=== PATIENT | male | born 1930 | race Caucasian/White ===

== ENCOUNTER 2016-10-14 17:52 | Observation (INO) | payer MEDICARE, OTHER ==
[~2016-10-14] VITALS: Ht 172.7 cm; Wt 63.0 kg
[~2016-10-14 17:52] MED LIST: ATOR20TA42 PO; BACI500T TOP; BISA10R PR; DILA50CH CHEW; FLEEENE3 PR; HYDR10TA23 PO; JANU100T PO; KLOR20 PO; LEVO50TA4 PO; MAGN1SOL2 PO; MAGN400 PO; MILKSUS5 PO; NYSTT TOPICAL; OMEP20TA PO; PROP20TA3 PO; TAMS5CAP PO; WARF-20 PO; ZYTI250T PO
[2016-10-14 18:28] VITALS: BP 131/72; PULSE 73; RESP 12; TEMP 98.2; O2SAT 94
[2016-10-14 20:09] VITALS: BP 152/72; PULSE 72; RESP 16; TEMP 97.1; O2SAT 96
[2016-10-14] MEDS ORDERED: APIX2.5T PO (21:14)
[2016-10-14] MEDS ORDERED: BISC10SU RECTAL (21:14)
[2016-10-14] MEDS ORDERED: SITA1TAB2 PO (21:14)
[2016-10-14] MEDS ORDERED: POTA-163 PO (21:14)
[2016-10-14] MEDS ORDERED: MAGN1TAB14 PO (21:14)
[2016-10-14] MEDS ORDERED: DILA100C PO (21:14)
[2016-10-14] MEDS ORDERED: PROP20TA3 PO (21:14)
[2016-10-14] MEDS ORDERED: [UNRECOGNIZED DRUG - OTHER] PO (21:14)
[2016-10-14] MEDS ORDERED: LIPI20TA PO (21:14)
[2016-10-14] MEDS ORDERED: OMEP20TA PO (21:14)
[2016-10-14] MEDS ORDERED: LEVO50TA4 PO (21:14)
[2016-10-14] MEDS ORDERED: FLEEENE3 RECTAL (21:14)
[2016-10-14] MEDS ORDERED: MILK2400 PO (21:14)
[2016-10-14] MEDS ORDERED: HYDR10TA23 PO (21:14)
[2016-10-14] MEDS ORDERED: MAGNSOL2 PO (21:14)
[2016-10-14] MEDS ORDERED: TAMS5CAP PO (21:14)
--- NOTE | 2016-10-14 21:30 | PD ---
HPI Chief Complaint: Neuro Symptoms/ Deficits Time Seen by Provider: 21:00 Travel History International Travel<30 days: No Contact w/Intl Traveler<30days: No Traveled to known affect area: No History of Present Illness HPI 86-year-old male was brought in by family for local [facility] for PEG tube placement. Patient has history of CVA with low extremity weakness. Patient started having problem with swallowing and started having aspiration problem recently. Patient fell swallow evaluation test yesterday. Patient was advised by personal physician to take patient to the ED to be admitted for PEG tube placement. Patient has history of seizure and unable to take Dilantin by mouth. Patient has history of hypertension, encephalopathy, GI bleed, dyslipidemia, aphasia, hypothyroidism, type 2 diabetes, medication, GERD, chronic kidney disease. PFSH Past Medical History Hx Anticoagulant Therapy: Yes Arthritis: Yes Asthma: No Blood Disorders: No Depression: No Cancer: Yes (PROSTATE CA, LEFT EAR) Cardiovascular Problems: Yes High Cholesterol: Yes Chemotherapy: No Chest Pain: Yes (CARDIAC ARREST DECEMBER 2014, [place] AT AGE 52) Congestive Heart Failure: No COPD: No Cerebrovascular Accident: Yes (CVA 30+YRS. AGO, BRAIN BLEED S/P FALL 2015) Diabetes: Yes Patient Takes Glucophage: No Endocrine: No Gastrointestinal Disorders: No GERD: No Genitourinary: Yes (PROSTATE CA) Headaches: No Hiatal Hernia: No Heparin Induced Thrombocytopen: No Hypertension: Yes Immune Disorder: No Implanted Vascular Access Dvce: No Kidney Stones: No Musculoskeletal: Yes Neurologic: Yes (BRAIN BLEED, CVA, seizures) Psychiatric: No Reproductive: No Respiratory: No Migraines: No Myocardial Infarction: Yes Radiation Therapy: Yes (Seeds placed for prostate ca) Renal Failure: No Seizures: Yes Sickle Cell Disease: No Sleep Apnea: No Thyroid Disease: No Ulcer: No Past Surgical History Abdominal Surgery: No AICD: No Arteriovenous Shunt: No Cardiac Surgery: No Ear Surgery: No Endocrine Surgery: No Eye Surgery: No Genitourinary Surgery: Yes (PROSTATE BX) Gynecologic Surgery: No Insulin Pump: No Joint Replacement: No Neurologic Surgery: No Oral Surgery: Yes Pacemaker: No Thoracic Surgery: No Other Surgery: No (IVC FILTER 2014) Social History Alcohol Use: No Tobacco Use: No Substance Use: No Allergies-Medications (Allergen,Severity, Reaction): Coded Allergies: Sulfa (Verified Allergy, Mild, 10/14/16) *MDRO Multi-Drug Resistant Organism (Verified Adverse Reaction, Unknown, ) 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 Reported Meds & Prescriptions Reported Meds & Active Scripts Active Reported Fleet Enema Rectal (Sodium Phosphates Rectal) 7-19 Gm/118 Ml Enem 118 Ml RECTAL DAILY PRN Milk of Magnesia Concentrate Liq (Magnesium Hydroxide) 1,200 Mg/5 Ml Susp 30 Ml PO DAILY PRN Magnesium Citrate Liq (Magnesium Citrate) 300 Ml Liq 300 Ml PO DIRECTED Biscolax Supp (Bisacodyl) 10 Mg Supp 10 Mg RECTAL DAILY PRN [Readycare] 240 Ml PO QID Potassium Chloride ER (Potassium Chloride) 20 Meq Tab 20 Meq PO TID Dilantin (Phenytoin Extended) 100 Mg Cap 100 Mg PO TID Propranolol (Propranolol HCl) 20 Mg Tab 20 Mg PO Q12HR Hydralazine (Hydralazine HCl) 10 Mg Tab 10 Mg PO BID Take with a meal Eliquis (Apixaban) 2.5 Mg Tab 2.5 Mg PO BID Omeprazole 20 Mg Tab 20 Mg PO DAILY Magnesium 400 Mg Tab 400 Mg PO DAILY Lipitor (Atorvastatin Calcium) 20 Mg Tab 20 Mg PO HS Levothyroxine (Levothyroxine Sodium) 50 Mcg Tab 50 Mcg PO DAILY Januvia (Sitagliptin Phosphate) 100 Mg Tab 100 Mg PO DAILY Flomax (Tamsulosin HCl) 0.4 Mg Cap 0.4 Mg PO HS Review of Systems General / Constitutional: No: Fever Eyes: No: Visual changes HENT: No: Headaches Cardiovascular: No: Chest Pain or Discomfort Respiratory: No: Shortness of Breath Gastrointestinal: No: Abdominal Pain Genitourinary: No: Dysuria Musculoskeletal: No: Pain Skin: No Rash Neurologic: No: Weakness Psychiatric: No: Depression Endocrine: No: Polydipsia Hematologic/Lymphatic: No: Easy Bruising Physical Exam Narrative GENERAL: Well-nourished, well-developed patient. SKIN: Warm and dry. HEAD: Normocephalic. EYES: No scleral icterus. No injection or drainage. NECK: Supple, trachea midline. No JVD or lymphadenopathy. CARDIOVASCULAR: Regular rate and rhythm without murmurs, gallops, or rubs. RESPIRATORY: Breath sounds equal bilaterally. No accessory muscle use. GASTROINTESTINAL: Abdomen soft, non-tender, nondistended. MUSCULOSKELETAL: No cyanosis, or edema. BACK: Nontender without obvious deformity. No CVA tenderness. Neurologic exam: Patient's noncommunicable. Patient's awake and alert follow commands. Unable to move lower extremity. Data Data Last Documented VS Vital Signs Date Time Temp Pulse Resp B/P Pulse Ox O2 Delivery O2 Flow Rate FiO2 10/14/16 21:48 94 Room Air 10/14/16 20:09 97.1 72 16 152/72 Orders Electrocardiogram (10/14/16 ) Complete Blood Count With Diff (10/14/16 21:15) Basic Metabolic Panel (Bmp) (10/14/16 21:15) Prothrombin Time / Inr (Pt) (10/14/16 21:15) Act Partial Throm Time (Ptt) (10/14/16 21:15) Urinalysis - C+S If Indicated (10/14/16 21:15) Chest, Single Ap (10/14/16 21:15) Iv Access Insert/Monitor (10/14/16 21:15) Ecg Monitoring (10/14/16 21:15) Oximetry (10/14/16 21:15) Phenytoin (Dilantin) (10/14/16 21:15) Urine Culture (10/14/16 21:40) Piperacil-Tazo 3.375 Gm Premix (Zosyn 3. (10/14/16 23:00) Vancomycin Inj (Vancomycin Inj) (10/14/16 23:00) Phenytoin Inj (Dilantin Inj) (10/14/16 23:00) Labs Laboratory Tests Test 10/14/16 10/14/16 10/14/16 21:34 21:40 21:54 White Blood Count 7.3 TH/MM3 Red Blood Count 4.18 MIL/MM3 Hemoglobin 12.7 GM/DL Hematocrit 37.1 % Mean Corpuscular Volume 88.7 FL Mean Corpuscular Hemoglobin 30.5 PG Mean Corpuscular Hemoglobin 34.3 % Concent Red Cell Distribution Width 13.9 % Platelet Count 221 TH/MM3 Mean Platelet Volume 7.8 FL Neutrophils (%) (Auto) 79.3 % Lymphocytes (%) (Auto) 10.4 % Monocytes (%) (Auto) 8.7 % Eosinophils (%) (Auto) 1.4 % Basophils (%) (Auto) 0.2 % Neutrophils # (Auto) 5.8 TH/MM3 Lymphocytes # (Auto) 0.8 TH/MM3 Monocytes # (Auto) 0.6 TH/MM3 Eosinophils # (Auto) 0.1 TH/MM3 Basophils # (Auto) 0.0 TH/MM3 CBC Comment DIFF FINAL Differential Comment Sodium Level 138 MEQ/L Potassium Level 4.2 MEQ/L Chloride Level 104 MEQ/L Carbon Dioxide Level 24.8 MEQ/L Anion Gap 9 MEQ/L Blood Urea Nitrogen 19 MG/DL Creatinine 1.07 MG/DL Estimat Glomerular Filtration 66 ML/MIN Rate Random Glucose 122 MG/DL Calcium Level 9.2 MG/DL Phenytoin (Dilantin) Level 2.9 MCG/ML Urine Color YELLOW Urine Turbidity HAZY Urine pH 5.5 Urine Specific [place] 1.011 Urine Protein NEG mg/dL Urine Glucose (UA) NEG mg/dL Urine Ketones NEG mg/dL Urine Occult Blood NEG Urine Nitrite POS Urine Bilirubin NEG Urine Urobilinogen LESS THAN 2.0 MG/DL Urine Leukocyte Esterase LARGE Urine RBC LESS THAN 1 /hpf Urine WBC 10 /hpf Urine Bacteria FEW /hpf Microscopic Urinalysis Comment CULTURE INDICATED Prothrombin Time 10.9 SEC Prothromb Time International 1.0 RATIO Ratio Activated Partial 25.7 SEC Thromboplast Time MDM Medical Decision Making Medical Screen Exam Complete: Yes Emergency Medical Condition: Yes Interpretation(s) 22:47 PM. Last Impressions Chest X-Ray 10/14/162114 Signed Impressions: Service Date/Time: Friday, October 14, 2016 21:28 - CONCLUSION: Bilateral peripheral airspace disease. Infectious infiltrate suspected. Agustin Cary Jr., MD 2248 PM. CBC WBC 7.3. Hemoglobin 12.7. Hematocrit 37.1. 79 neutrophil. BMP within normal limit. BUN 19. Phenytoin 2.9. UA positive for WBC and bacteria. Differential Diagnosis Differential diagnosis including esophageal obstruction, esophageal dysmotility , dehydration, electrolyte imbalance. Narrative Course 86-year-old male was brought in the ED for inability to swallow, frequent aspiration and failed swallow evaluation. Status post CVA. Normal saline solution 100 cc an hour. Zosyn 3.37 g IV. Vancomycin 1 g IV. Dilantin 100 mg IV given. Diagnosis Primary Impression: Pneumonia Qualified Code: J18.9 - Pneumonia of both lower lobes due to infectious organism Additional Impressions: Problems with swallowing UTI (urinary tract infection) Qualified Code: N30.00 - Acute cystitis without hematuria Admitting Information Admitting Physician Requests: Admit Luke Hart MD Oct 14, 2016 21:30
[2016-10-14 21:48] VITALS: O2SAT 94
--- NOTE | 2016-10-14 21:50 | RADRPT ---
EXAM DATE/TIME: 10/14/2016 21:28 [facility] COMPARISON: CHEST SINGLE AP, April 02, 2016, 14:28. INDICATIONS : Short of breath. MEDICAL HISTORY : Stroke. Swallow test done yesterday. SURGICAL HISTORY : None. ENCOUNTER: Initial ACUITY: 2 days PAIN SCORE: Non-responsive. LOCATION: Bilateral chest FINDINGS: Single portable frontal view of the chest shows patchy airspace consolidation involving the periphera l aspects of both lower lobes. No effusions. The heart is normal in size. Aorta is ectatic and calcif ied. Bony structures are unremarkable. CONCLUSION: Bilateral peripheral airspace disease. Infectious infiltrate suspected. Agustin Cary Jr., MD on October 14, 2016 at 21:46 Board Certified Radiologist. This report was verified electronically.
[2016-10-14 22:10] LABS: AUTOMATED NEUTROPHIL # 5.8 TH/MM3 (1.8-7.7); BASOPHIL % 0.2 % (0.0-2.0); EOSINOPHIL # 0.1 TH/MM3 (0-0.4); EOSINOPHIL % 1.4 % (0.0-4.0); HEMATOCRIT 37.1 % (39.0-51.0); HEMO FLAGS DIFF FINAL; LYMPH % 10.4 % (9.0-44.0); LYMPHOCYTE # 0.8 TH/MM3 (1.0-4.8); MEAN CELL VOLUME 88.7 FL (80.0-100.0); MEAN CORPUSCULAR HEMOGLOBIN 30.5 PG (27.0-34.0); MEAN CORPUSCULAR HGB CONC 34.3 % (32.0-36.0); MONO % 8.7 % (0.0-8.0); NEUT % 79.3 % (16.0-70.0); PLATELET COUNT 221 TH/MM3 (150-450); RED BLOOD COUNT 4.18 MIL/MM3 (4.50-5.90); RED CELL DISTRIBUTION WIDTH 13.9 % (11.6-17.2); WHITE BLOOD COUNT 7.3 TH/MM3 (4.0-11.0)
[2016-10-14 22:16] LABS: BACTERIA, URINE FEW /hpf; BLOOD, URINE NEG (NEG); COMMENT (UR) CULTURE INDICATED; CULTURE IF INDICATED CULTURE INDICATED; GLUCOSE,URINE NEG (NEG); KETONE, URINE NEG (NEG); NITRITE,URINE POS (NEG); PH, URINE 5.5 (5.0-8.5); URINE COLOR YELLOW (YELLW/STRAW)
[2016-10-14 22:32] LABS: BICARBONATE 24.8 MEQ/L (21.0-32.0); POTASSIUM 4.2 MEQ/L (3.5-5.1)
[2016-10-14 22:45] LABS: APTT (PATIENT) 25.7 SEC (24.3-30.1); PROTHROMBIN TIME - PATIENT 10.9 SEC (9.8-11.6)
[2016-10-14] MEDS ORDERED: PHENYTOIN INJ 100 MG/2 ML VIAL IV ONE (23:00)
[2016-10-14] MEDS ORDERED: PIPERACIL-TAZO 3.375 GM PREMIX 50 ML IV ONE (23:00)
[2016-10-14] MEDS ORDERED: VANCOMYCIN INJ 1,000 MG in SODIUM CHLOR 0.9% 250 ML INJ 250 ML IV ONE (23:00)
[2016-10-14] MEDS ORDERED: FOSPHENYTOIN INJ 1,000 MGPE in SODIUM CHLORIDE 0.9% INJ 50 ML IV ONE (23:45)
[2016-10-14] MEDS ORDERED: SODIUM CHLORIDE 0.9% FLUSH 5 ML FLUSH FLUSH PRN (23:45)
[2016-10-14] MEDS ORDERED: VANCOMYCIN 1,000 MG/NS 250 ML IV SCH ×2 (23:45)
[2016-10-14] MEDS ORDERED: DEXTROSE 50% IN WATER 50 ML VIAL(D50) IV PUSH PRN (23:45)
[2016-10-14] MEDS ORDERED: GLUCAGON 1 MG/ML VIAL OTHER PRN (23:45)
[2016-10-14] MEDS ORDERED: NALOXONE HCL 0.4 MG/ML AMP IV PRN (23:45)
--- NOTE | 2016-10-15 01:10 | HHI.HP ---
[facility] Deandre Parada MD Admission Diagnosis pneumonia. UTI. Unable to swallow. Subtherapeutic medication leve Diagnoses: Chief Complaint: unable to give history Travel History International Travel<30 Days: No Contact w/Intl Traveler <30 Da: No Traveled to Known Affected Are: No History of Present Illness history from ER physician communication, [facility] transfer notes, and review of medical records. Patient himself is elderly gentleman with significant aphasia secondary to previous CVAs. He pretty much answers no to everything line of questioning. He is not able to make a conversation. Cannot make a sentence. As per [facility] transfer notes, patient was sent by doctors there for PEG tube placement. Patient was at the nursing facility after having falls and previous CVAs. He was on pured and thin liquids diet over there. He then had Speech and Swallow Evaluation on October 13, 2016 at which he essentially failed. He was therefore put on nothing by mouth status. He was sent to ER for PEG tube placement likely because patient also has been missing his medications. He is on Dilantin at the nursing facility for history of seizures. In the emergency room, patient's Level Was Subtherapeutic. In the Emergency Room, Further Workup Revealed Bilateral Infiltrates on His Chest X-Ray. Review of Systems ROS Limitations: Speech Impaired (unable to obtain review of system at all. Patient kept saying no to pretty much everything.), Poor Historian Past Family Social History Past Medical History Per EMR and [facility] paperwork: CT- age 52 Pulmonary embolus 2015 Cardiac Arrest 2015 History of CVAstarted at age 52- with residual aphagia Hyperlipidemia Hypertension Diabetes Chronic kidney disease Hypothyroidism History of seizures History of encephalopathy History of C. difficile colitisin April 2016 History of GI bleed. 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 At present, patient is elderly gentleman residing at a nursing facility. Mostly wheelchair bound. Physical Exam Vital Signs Vital Signs Date Time Temp Pulse Resp B/P Pulse Ox O2 Delivery O2 Flow Rate FiO2 10/14/16 21:48 94 Room Air 10/14/16 20:09 97.1 72 16 152/72 96 10/14/16 18:28 98.2 73 12 131/72 94 Room Air Physical Exam GENERAL: This is an elderly gentleman, in no apparent distress. SKIN: No rashes, ecchymoses or lesions. Cool and dry. HEAD: Atraumatic. Normocephalic. No temporal or scalp tenderness. EYES: No scleral icterus. No injection or drainage. ENT: Nose without bleeding, purulent drainage or septal hematoma. Airway patent. NECK: Trachea midline. No JVD Supple, nontender, no meningeal signs. CARDIOVASCULAR: Regular rate and rhythm without murmurs, gallops, or rubs. RESPIRATORY: Clear to auscultation. Breath sounds equal bilaterally. No wheezes , rales, or rhonchi. GASTROINTESTINAL: Abdomen soft, non-tender, nondistended. No guarding. MUSCULOSKELETAL: Extremities without clubbing, cyanosis, or edema. No calf tenderness. NEUROLOGICAL: Awake, slurred speech. Not able to make a sentence. Only answer yes or no. However unsure how alert he is in terms of date and time. Does not really seem to understand the line of questioning. Bilateral lower extremity atrophy. Power about 3 out of 5 bilaterally. Upper extremity about 4 out of 5. Limited exam as patient is not able to follow commands. Laboratory Laboratory Tests Test 10/14/16 10/14/16 10/14/16 21:34 21:40 21:54 White Blood Count 7.3 Red Blood Count 4.18 Hemoglobin 12.7 Hematocrit 37.1 Mean Corpuscular Volume 88.7 Mean Corpuscular Hemoglobin 30.5 Mean Corpuscular Hemoglobin 34.3 Concent Red Cell Distribution Width 13.9 Platelet Count 221 Mean Platelet Volume 7.8 Neutrophils (%) (Auto) 79.3 Lymphocytes (%) (Auto) 10.4 Monocytes (%) (Auto) 8.7 Eosinophils (%) (Auto) 1.4 Basophils (%) (Auto) 0.2 Neutrophils # (Auto) 5.8 Lymphocytes # (Auto) 0.8 Monocytes # (Auto) 0.6 Eosinophils # (Auto) 0.1 Basophils # (Auto) 0.0 CBC Comment DIFF FINAL Differential Comment Sodium Level 138 Potassium Level 4.2 Chloride Level 104 Carbon Dioxide Level 24.8 Anion Gap 9 Blood Urea Nitrogen 19 Creatinine 1.07 Estimat Glomerular Filtration 66 Rate Random Glucose 122 Calcium Level 9.2 Phenytoin (Dilantin) Level 2.9 Urine Color YELLOW Urine Turbidity HAZY Urine pH 5.5 Urine Specific [place] 1.011 Urine Protein NEG Urine Glucose (UA) NEG Urine Ketones NEG Urine Occult Blood NEG Urine Nitrite POS Urine Bilirubin NEG Urine Urobilinogen LESS THAN 2.0 Urine Leukocyte Esterase LARGE Urine RBC LESS THAN 1 Urine WBC 10 Urine Bacteria FEW Microscopic Urinalysis Comment CULTURE INDICATED Prothrombin Time 10.9 Prothromb Time International 1.0 Ratio Activated Partial 25.7 Thromboplast Time Date/Time Procedure Status Source Growth 10/14/16 21:40 Urine Culture Received Urine Clean Catch Pending Result Diagram: 10/14/16213310/14/162133 Imaging Last 48 hours Impressions Chest X-Ray 10/14/162114 Signed Impressions: Service Date/Time: Friday, October 14, 2016 21:28 - CONCLUSION: Bilateral peripheral airspace disease. Infectious infiltrate suspected. Agustin Cary Jr., MD Assessment and Plan Problem List: (1) Problems with swallowing ICD Code: R13.10 Status: Acute (2) UTI (urinary tract infection) ICD Code: N39.0 Status: Acute (3) Pneumonia ICD Code: J18.9 Status: Acute Assessment and Plan Impression: Dysphagia post CVA Aspiration pneumonia UTI Subtherapeutic Dilantin level Chronic anticoagulationon Eliquis Plan: Give patient fosphenytoin at thousand milligrams one dose now. Started on Dilantin 100 mg IV every 8 hours. Seizure precautions. GI consult for PEG tube placement. Nothing by mouth. IV hydration with D5 normal saline at 42 cc per hour. We'll monitor fingersticks closely. No sliding scale coverage. Patient was given Zosyn and gentamicin IV in ER for aspiration pneumonia/UTI. At present, patient does not look toxic. Will continue Zosyn 4.5 g IV every 6 hours. Hold by mouth meds. DVT prophylaxisto restart Eliquis once patient has PEG tube GI prophylaxiswith pantoprazole. Discussed Condition With patient, ER physician, ER nurse Problem Qualifiers (1) UTI (urinary tract infection): Qualified Code: N30.00 - Acute cystitis without hematuria (2) Pneumonia: Qualified Code: J18.9 - Pneumonia of both lower lobes due to infectious organism Abdirahman Whitt MD Oct 15, 2016 01:10
[2016-10-15] MEDS ORDERED: hydrALAZINE HCL 20 MG/ML VIAL IV PUSH PRN (01:30)
[2016-10-15 03:16] VITALS: BP 152/65; PULSE 72; RESP 18; O2SAT 97
[2016-10-15] MEDS: DEXT 5%-NACL 0.9% 1000 ML INJ 1,000 ML IV SCH ×2 (03:30→23:34)
[2016-10-15 04:08] LABS: AUTOMATED NEUTROPHIL # 4.8 TH/MM3 (1.8-7.7); BASOPHIL % 0.3 % (0.0-2.0); EOSINOPHIL # 0.1 TH/MM3 (0-0.4); EOSINOPHIL % 1.7 % (0.0-4.0); HEMATOCRIT 34.4 % (39.0-51.0); HEMO FLAGS DIFF FINAL; LYMPHOCYTE # 0.8 TH/MM3 (1.0-4.8); MEAN CELL VOLUME 90.2 FL (80.0-100.0); MEAN CORPUSCULAR HEMOGLOBIN 30.2 PG (27.0-34.0); MEAN CORPUSCULAR HGB CONC 33.5 % (32.0-36.0); MONO % 11.3 % (0.0-8.0); NEUT % 73.7 % (16.0-70.0); PLATELET COUNT 198 TH/MM3 (150-450); RED BLOOD COUNT 3.81 MIL/MM3 (4.50-5.90); RED CELL DISTRIBUTION WIDTH 13.9 % (11.6-17.2); WHITE BLOOD COUNT 6.5 TH/MM3 (4.0-11.0)
[2016-10-15 04:39] LABS: BICARBONATE 26.5 MEQ/L (21.0-32.0); POTASSIUM 3.8 MEQ/L (3.5-5.1)
[2016-10-15] MEDS: PIPERACIL-TAZO 4.5 GM PREMIX 100 ML IV SCH ×4 (05:57→23:43)
[2016-10-15] MEDS: LEVOTHYROXINE SODIUM 100 MCG VIAL IV PUSH SCH (06:09)
[2016-10-15] MEDS: PHENYTOIN INJ 100 MG/2 ML VIAL IV SCH ×3 (06:09→23:43)
[2016-10-15 07:00] VITALS: BP 146/69; PULSE 65; RESP 19; TEMP 97.6; O2SAT 95
[2016-10-15] MEDS: SODIUM CHLORIDE 0.9% FLUSH 5 ML FLUSH FLUSH SCH ×2 (09:00→23:43)
[2016-10-15] MEDS: PANTOPRAZOLE SODIUM 40 MG VIAL IV PUSH SCH (09:09)
--- NOTE | 2016-10-15 09:33 | EKG ---
Date Performed: 10/14/2016 Time Performed: 21:20:33 PTAGE: 86 years EKG: Sinus rhythm Possible ANTERIOR MYOCARDIAL INFARCTION Possible INFERIOR MYOCARDIAL INFARCTION ABNORMAL ECG NO PREVIOUS TRACING DOCTOR: Daniel Randle Interpretating Date/Time 10/15/2016 09:31:18
[2016-10-15 11:00] VITALS: BP 132/74; PULSE 77; RESP 19; O2SAT 96
--- NOTE | 2016-10-15 12:36 | PD.CONS ---
HPI History of Present Illness This is a 86 year old with a history of a prior CVA who was sent from a local nursing facility to have a feeding tube placed. The patient has garbled speech since his stroke and is not able to communicate. The history has been obtained from the EMR and from the patient's son who is at the bedside. His son reports that he has been on a puree diet for quite some time, but recently had a modified barium swallow with speech therapy as outpatient and it showed that he was having silent aspiration. It was recommended that he remain nothing by mouth with bypass feedings. He was sent from [facility] to have a feeding tube placed. His son denies any nausea, vomiting, or obvious abdominal pain. We have evaluated the patient in the past for anemia and hematochezia. 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 Of note he takes Eliquis at the shelter and last had this on 10/14/16 at 9 AM according to the records from the shelter. ([facility]) PFSH Past Medical History CAD/PR Esophagitis Proctitis Pulmonary embolus 2015 Cardiac Arrest 2014 History of CVA with residual aphagia Hyperlipidemia Hypertension Diabetes Chronic kidney disease Hypothyroidism History of seizures History of encephalopathy History of C. difficile colitisin April 2016 History of GI bleed. 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 Medications Allergies Coded Allergies Type Severity Reaction Last Updated Verified Sulfa Allergy Mild 10/14/16 Yes *MDRO Multi-Drug Resistant Organism Adverse Reaction Unknown 10/14/16 Yes Active Scripts Medications Dose Route/Sig Days Date Category Dose Instructions Fleet Enema Rectal (Sodium Phosphates Rectal) 7-19 Gm/118 Ml Enem 118 Ml RECTAL DAILY PRN 10/14/16 Reported Milk of Magnesia Concentrate Liq (Magnesium Hydroxide) 1,200 Mg/5 Ml Susp 30 Ml PO DAILY PRN 10/14/16 Reported Magnesium Citrate Liq (Magnesium Citrate) 300 Ml Liq 300 Ml PO DIRECTED 10/14/16 Reported Biscolax Supp (Bisacodyl) 10 Mg Supp 10 Mg RECTAL DAILY PRN 10/14/16 Reported [[employer]] 240 Ml PO QID 10/14/16 Reported Potassium Chloride ER (Potassium Chloride) 20 Meq Tab 20 Meq PO TID 10/14/16 Reported Dilantin (Phenytoin Extended) 100 Mg Cap 100 Mg PO TID 10/14/16 Reported Propranolol (Propranolol HCl) 20 Mg Tab 20 Mg PO Q12HR 10/14/16 Reported Hydralazine (Hydralazine HCl) 10 Mg Tab 10 Mg PO BID 10/14/16 Reported Take with a meal Eliquis (Apixaban) 2.5 Mg Tab 2.5 Mg PO BID 10/14/16 Reported Omeprazole 20 Mg Tab 20 Mg PO DAILY 10/14/16 Reported Magnesium 400 Mg Tab 400 Mg PO DAILY 10/14/16 Reported Lipitor (Atorvastatin Calcium) 20 Mg Tab 20 Mg PO HS 10/14/16 Reported Levothyroxine (Levothyroxine Sodium) 50 Mcg Tab 50 Mcg PO DAILY 10/14/16 Reported Januvia (Sitagliptin Phosphate) 100 Mg Tab 100 Mg PO DAILY 10/14/16 Reported Flomax (Tamsulosin HCl) 0.4 Mg Cap 0.4 Mg PO HS 10/14/16 Reported Family History No family history of cancer. Social History Quit smoking at age 52. No EtOH. Resides at [facility] ([facility]) Review of Systems ROS Unable to obtain ([facility]) GI Exam Vitals I&O Vital Signs Date Time Temp Pulse Resp B/P Pulse Ox O2 Delivery O2 Flow Rate FiO2 10/15/16 11:00 77 19 132/74 96 Room Air 10/15/16 07:00 97.6 65 19 146/69 95 Room Air 10/15/16 03:16 72 18 152/65 97 10/14/16 21:48 94 Room Air 10/14/16 20:09 97.1 72 16 152/72 96 10/14/16 18:28 98.2 73 12 131/72 94 Room Air Imaging Last Impressions Chest X-Ray 10/14/162114 Signed Impressions: Service Date/Time: Friday, October 14, 2016 21:28 - CONCLUSION: Bilateral peripheral airspace disease. Infectious infiltrate suspected. Agustin Cary Jr., MD Laboratory Test 10/14/16 10/14/16 10/14/16 10/15/16 21:34 21:40 21:54 03:35 White Blood Count 7.3 TH/MM3 6.5 TH/MM3 Red Blood Count 4.18 MIL/MM3 3.81 MIL/MM3 Hemoglobin 12.7 GM/DL 11.5 GM/DL Hematocrit 37.1 % 34.4 % Mean Corpuscular Volume 88.7 FL 90.2 FL Mean Corpuscular Hemoglobin 30.5 PG 30.2 PG Mean Corpuscular Hemoglobin 34.3 % 33.5 % Concent Red Cell Distribution Width 13.9 % 13.9 % Platelet Count 221 TH/MM3 198 TH/MM3 Mean Platelet Volume 7.8 FL 7.9 FL Neutrophils (%) (Auto) 79.3 % 73.7 % Lymphocytes (%) (Auto) 10.4 % 13.0 % Monocytes (%) (Auto) 8.7 % 11.3 % Eosinophils (%) (Auto) 1.4 % 1.7 % Basophils (%) (Auto) 0.2 % 0.3 % Neutrophils # (Auto) 5.8 TH/MM3 4.8 TH/MM3 Lymphocytes # (Auto) 0.8 TH/MM3 0.8 TH/MM3 Monocytes # (Auto) 0.6 TH/MM3 0.7 TH/MM3 Eosinophils # (Auto) 0.1 TH/MM3 0.1 TH/MM3 Basophils # (Auto) 0.0 TH/MM3 0.0 TH/MM3 CBC Comment DIFF FINAL DIFF FINAL Differential Comment Sodium Level 138 MEQ/L 140 MEQ/L Potassium Level 4.2 MEQ/L 3.8 MEQ/L Chloride Level 104 MEQ/L 105 MEQ/L Carbon Dioxide Level 24.8 MEQ/L 26.5 MEQ/L Anion Gap 9 MEQ/L 9 MEQ/L Blood Urea Nitrogen 19 MG/DL 17 MG/DL Creatinine 1.07 MG/DL 1.00 MG/DL Estimat Glomerular Filtration 66 ML/MIN 71 ML/MIN Rate Random Glucose 122 MG/DL 121 MG/DL Calcium Level 9.2 MG/DL 9.0 MG/DL Phenytoin (Dilantin) Level 2.9 MCG/ML Urine Color YELLOW Urine Turbidity HAZY Urine pH 5.5 Urine Specific [place] 1.011 Urine Protein NEG mg/dL Urine Glucose (UA) NEG mg/dL Urine Ketones NEG mg/dL Urine Occult Blood NEG Urine Nitrite POS Urine Bilirubin NEG Urine Urobilinogen LESS THAN 2.0 MG/DL Urine Leukocyte Esterase LARGE Urine RBC LESS THAN 1 /hpf Urine WBC 10 /hpf Urine Bacteria FEW /hpf Microscopic Urinalysis Comment CULTURE INDICATED Prothrombin Time 10.9 SEC Prothromb Time International 1.0 RATIO Ratio Activated Partial 25.7 SEC Thromboplast Time Date/Time Procedure Status Source Growth 10/14/16 21:40 Urine Culture Received Urine Clean Catch Pending Physical Examination HEENT: Normocephalic; atraumatic; no jaundice. CHEST: Resp. even/unlabored, diminished CARDIAC: RR ABDOMEN: Soft, nondistended, nontender; no hepatosplenomegaly; bowel sounds are present in all four quadrants. EXTREMITIES: No clubbing, cyanosis, or edema. TOBACCO ROLLER: Alert, speech garbled. Does not follow commands ([facility]) Assessment and Plan Plan ASSESSMENT: - Dysphagia. Pt has a hx of CVA and has been on puree diet, but according to son was recently found to have silent aspiration on a modified barium swallow and was sent to the ER for placement of a feeding tube. Last Eliquis dose 10/14 at 0900. D/W EGD with peg tube placement, procedure, risks, benefits with son and he would like to proceed. - Anemia. 11.5/34.4. 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 - CVA, Hx PE. On Eliquis at shelter, last had 10/14 at 0900 - HTN, Hyperlipidemia, DM, CKD, Hypothyroidism. 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 According to oncology during evaluation, pt with very poor PFS and this was a palliative resection and reexcision of margins in this elderly, very frail patient not feasible. XRT poses problems in this patient with poor PFS PLAN: - Plan for egd with peg tube in am - Obtain consents - NPO - Hold Eliquis - On zoysn - CBC, BMP in am - Supportive care - Further recommendations to follow based on results of above - Pt seen and examined by Dr. Mane and myself and this note is written on her behalf ([facility]) Physician Comments seen, examined agree with above (France Mane MD) [facility] Oct 15, 2016 12:36 France Mane MD Oct 15, 2016 18:59
[2016-10-15 14:30] VITALS: BP 125/61; PULSE 58; RESP 19; O2SAT 96
[2016-10-15 16:00] VITALS: BP 138/65
[2016-10-15 20:00] VITALS: BP 138/69; PULSE 65; RESP 20; TEMP 97.1; O2SAT 95
[2016-10-16] VITALS (11 sets, daily range): BP systolic 126–156; BP diastolic 64–76; PULSE 68–79; RESP 18–20; TEMP 95.4–97.7; O2SAT 93–98
[2016-10-16] MEDS: PHENYTOIN INJ 100 MG/2 ML VIAL IV SCH ×3 (06:50→22:34)
[2016-10-16] MEDS: PIPERACIL-TAZO 4.5 GM PREMIX 100 ML IV SCH ×4 (06:50→22:34)
[2016-10-16] MEDS: LEVOTHYROXINE SODIUM 100 MCG VIAL IV PUSH SCH (06:52)
[2016-10-16] MEDS: SODIUM CHLORIDE 0.9% FLUSH 5 ML FLUSH FLUSH SCH ×2 (08:16→22:34)
[2016-10-16 08:26] LABS: AUTOMATED NEUTROPHIL # 4.3 TH/MM3 (1.8-7.7); BASOPHIL % 0.4 % (0.0-2.0); EOSINOPHIL # 0.1 TH/MM3 (0-0.4); EOSINOPHIL % 2.2 % (0.0-4.0); HEMATOCRIT 35.1 % (39.0-51.0); HEMO FLAGS DIFF FINAL; LYMPH % 10.9 % (9.0-44.0); LYMPHOCYTE # 0.6 TH/MM3 (1.0-4.8); MEAN CELL VOLUME 89.4 FL (80.0-100.0); MEAN CORPUSCULAR HGB CONC 33.6 % (32.0-36.0); MONO % 11.4 % (0.0-8.0); NEUT % 75.1 % (16.0-70.0); PLATELET COUNT 206 TH/MM3 (150-450); RED BLOOD COUNT 3.92 MIL/MM3 (4.50-5.90); WHITE BLOOD COUNT 5.7 TH/MM3 (4.0-11.0)
[2016-10-16 08:55] LABS: BICARBONATE 26.2 MEQ/L (21.0-32.0); POTASSIUM 3.5 MEQ/L (3.5-5.1)
[2016-10-16] MEDS: PANTOPRAZOLE SODIUM 40 MG VIAL IV PUSH SCH (09:31)
--- NOTE | 2016-10-16 10:09 | HHI.PR ---
Subjective Remarks Follow-up for dysphasia and aspiration. Seen with family at bedside. The patient is essentially nonverbal and only mumbles at baseline. The patient does shake his head no when asked if he has any pain, nausea, vomiting, shortness of breath. Family at bedside is apprehensive about PEG tube placement , but son/POA wants PEG tube to be placed. Plan is for PEG tube placement today. Objective Vitals Vital Signs Date Time Temp Pulse Resp B/P Pulse Ox O2 Delivery O2 Flow Rate FiO2 10/16/16 08:00 95.4 68 126/64 97 10/16/16 04:00 96.9 69 20 149/76 94 10/16/16 00:33 69 10/16/16 00:00 95.9 69 20 138/72 94 10/15/16 20:00 97.1 65 20 138/69 95 10/15/16 16:00 60 17 138/65 95 10/15/16 14:30 58 19 125/61 96 Room Air 10/15/16 11:00 77 19 132/74 96 Room Air I/O 10/15/16 10/15/16 10/15/16 10/16/16 10/16/16 10/16/16 07:00 15:00 23:00 07:00 15:00 23:00 Intake Total 0 ml 0 ml Balance 0 ml 0 ml Intake Oral 0 ml 0 ml # Voids 1 1 1 2 Result Diagram: 10/16/1614 10/16/1614 Imaging Last Impressions Chest X-Ray 10/14/162114 Signed Impressions: Service Date/Time: Friday, October 14, 2016 21:28 - CONCLUSION: Bilateral peripheral airspace disease. Infectious infiltrate suspected. Agustin Cary Jr., MD Objective Remarks GENERAL: Well-developed well-nourished. In no acute distress. SKIN: Warm and dry. No lesions noted. HEENT: Normocephalic. Pupils equal and round. Mucous membranes pink and moist. CARDIOVASCULAR: Regular rate and rhythm. No murmur appreciated. RESPIRATORY: No accessory muscle use. Clear to auscultation. Breath sounds equal bilaterally. GASTROINTESTINAL: Abdomen soft, non-tender, nondistended. Bowel sounds x4. MUSCULOSKELETAL: No obvious deformities. No clubbing or cyanosis. No edema. NEUROLOGICAL: Awake and alert. Nonverbal, mumbling speech. Moves upper and lower extremities spontaneously. PSYCHIATRIC: Appropriate mood and affect; insight and judgment limited A/P Problem List: (1) Problems with swallowing ICD Code: R13.10 Status: Acute (2) UTI (urinary tract infection) ICD Code: N39.0 Status: Acute (3) Pneumonia ICD Code: J18.9 Status: Acute Assessment and Plan 86-year-old male with past medical history of CVA with aphasia was sent from SNF due to failed swallow evaluation and silent aspiration Dysphagia secondary to past CVA: Failed swallow eval as outpatient. Patient's son/POA consented for PEG tube placement, GI consulted. Palliative care consulted to assist with further goals of care. IVF pending PEG placement. Dietitian consult for nutrition recommendations. Home oral meds held for now, give IV as able, will resume home meds per PEG once placed. Aspiration pneumonia: Asymptomatic. Chest x-ray with bilateral peripheral airspace disease with infectious infiltrates suspected. Secondary to the above. Afebrile with no leukocytosis. Empiric coverage with IV Zosyn, transition to oral Augmentin at [place]. O2 and nebs as needed. UTI: Abnormal UA with evidence of UTI. Continue antibiotics as above. Follow- up urine culture. Chronic anticoagulation with history of GI bleed, PE, and CVA: Eliquis on hold for GI procedure as above, resume when cleared by GI. History of seizure disorder: On Dilantin was subtherapeutic level. Continue IV Dilantin for now. DVT prophylaxis: Eliquis, SCDs Written by Kai Talavera, acting as scribe for Dr. Fournier on 10/16/16 at 10:09. The documentation accurately reflects the work performed [id number] by la Dr. Fournier on 10/16/16 at 10:09. Discharge Planning Discharge planning back to SNF once patient started on and tolerating tube feeds. Problem Qualifiers (1) UTI (urinary tract infection): Qualified Code: N30.00 - Acute cystitis without hematuria (2) Pneumonia: Qualified Code: J18.9 - Pneumonia of both lower lobes due to infectious organism Kai Talavera Oct 16, 2016 10:09 Korina Fournier MD Oct 16, 2016 12:57
[2016-10-16] MEDS ORDERED: RESP: ALBUTEROL 1.25 MG/3 ML NEB (PRN) NEB (10:15)
--- NOTE | 2016-10-16 11:34 | PD.CONS ---
Consult Service Palliative Care Consult Requested By Kai ALBA . Primary Care Physician Deandre Parada MD . Reason for Consultation a. To assist with evaluation and management of symptoms including: pain, dysphagia, aphasia b. To assist medical decision maker(s) with: better understanding of current medical conditions; weighing benefits/burdens of medical treatment options; making medical treatment decisions. . HPI History of Present Illness Mr. Skaggs is an 86 year old male who presented to [facility] ED on 10/14/16 to be evaluated for possible PEG tube placement. 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 difficile-April 2016, h/o GIB, hypothyroidism, GERD, and h/o prostate cancer. The patient is a resident of [facility]. He has significant aphasia secondary previous CVA when he was in his 50s. He is a poor historian, unable to make conversation. Garbled speech. Patient was tolerating a pured diet with thin liquids until recently when he began having difficulty swallowing and aspiration. Patient failed a swallow evaluation on 10/13/16. Patient has since remained NPO, not receiving ordered medications. He is on Dilantin for his h/o seizures. In the ED, the patient had a subtherapeutic Dilantin level of 2.9. Diagnostic findings in the ED: * Vital signs: Pulse 73, respirations 12, BP 131/72, oxygen saturation 94% on room air, oral temperature 98.2 * WBC: 7.3, hemoglobin 12.7, hematocrit 37.1, platelets 221, neutrophils 79.3% * Sodium 138, potassium 4.2, chloride 104, carbon dioxide 24.8, glucose 122, calcium 9.2 * BUN: 19, creatinine 1.07, GFR 66 * PT: 10.9, INR 1.0, APTT 25.7 * Urinalysis: Hazy urine + nitrates, large amount of leukocyte esterase, WBC and bacteria elevated. Urine culture indicated. * Urine culture growing gram-negative mark * Chest x-ray: Bilateral peripheral airspace disease, infectious infiltrate suspected. Patient was brought to the ED secondary to his inability to swallow, frequent episodes of aspiration and failed swallow evaluation. Chest x-ray showing bilateral peripheral airspace disease with infectious infiltrate suspected likely secondary to aspiration pneumonia. Urinalysis with evidence of UTI, culture initially growing gram-negative rods. Empiric antibiotics were initiated, Zosyn and gentamicin were administered in the ED. Will continue Zosyn 4.5 g IV every 8 hours. Received 1,000mg Fosphenytoin and started on Dilantin 100 mg IV every 8 hours for her subtherapeutic Dilantin level of 2.9. GI was consulted. GI is familiar with this patient, having previously been consulted for evaluation of anemia and hematochezia. Per notes, the patient recently had a modified barium swallow with speech which showed that he was having silent aspiration. Recommendations were made that the patient should remain NPO with bypass feedings. 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 GI discussed EGD with PEG tube placement, procedures, risks, benefits with patient's family, they would like to proceed with this procedure. Of note he takes Eliquis at the [facility] and last had this on 10/14/16 at 9 AM. Palacos is on hold for GI procedure, will resume when cleared by GI. Palliative Care was consulted to assist with symptom management and to discuss with the family the benefits and burdens of his current illnesses and the options regarding future care. . Function/Cognitive Trajectory Mr. Skaggs is an 86-year-old male with a complex medical history. Status post CVA at the age of 52 with residual right-sided weakness and significant aphasia. The patient's reports he was completely independent until 12/04 when he had a fall resulting in a subdural hematoma. Since that time the patient has been bedbound, unable to bear weight. The patient has had an 30+ pound weight loss over the past year. Patient has been hospitalized approximately 3 time in the past 6 months with recurrent UTI and dehydration. He has worsening dementia per his brother, who states he often does not recognize his family. Patient now having increased difficulty swallowing and episodes of aspiration. Failed a swallow evaluation on 10/13/16 with recommendations to remain NPO with bypass nutrition. Currently hospitalized for management of pneumonia, UTI and possible PEG tube placement. . Review of Systems ROS Limitations: Altered Mental Status, Speech Impaired (Aphasia) Constitutional: COMPLAINS OF: Weight loss (30+ pounds in the past 12 months reported), Change in appetite, Generalized weakness Ears, nose, mouth, throat: DENIES: Epistaxis Cardiovascular: DENIES: Lower Extremity Edema Gastrointestinal: COMPLAINS OF: Difficulty Swallowing Genitourinary: COMPLAINS OF: Urinary incontinence Neurologic: COMPLAINS OF: Localized weakness, Speech Problems Psychiatric: COMPLAINS OF: Confusion Past Family Social History Coded Allergies: Sulfa (Verified Allergy, Mild, 10/14/16) *MDRO Multi-Drug Resistant Organism (Verified Adverse Reaction, Unknown, ) MRSA PCR (nares) POSITIVE - 12/19/15 Past Medical History CAD/DC Esophagitis Proctitis Pulmonary embolus 2014 Cardiac Arrest 2014 History of CVA with residual aphagia (50 years ago) Hyperlipidemia Hypertension Diabetes Chronic kidney disease Hypothyroidism History of seizures History of encephalopathy History of C. difficile colitisin April 2016 History of GI bleed. Hypothyroidism GERD Prostate Cancer . Past Surgical History Prostate Biopsy IVC filter placement 2014 EGD/colonoscopy . Reported Medications Fleet Enema Rectal (Sodium Phosphates Rectal) 7-19 Gm/118 Ml Enem 118 Ml RECTAL DAILY PRN Milk of Magnesia Concentrate Liq (Magnesium Hydroxide) 1,200 Mg/5 Ml Susp 30 Ml PO DAILY PRN Magnesium Citrate Liq (Magnesium Citrate) 300 Ml Liq 300 Ml PO DIRECTED Biscolax Supp (Bisacodyl) 10 Mg Supp 10 Mg RECTAL DAILY PRN [Readycare] 240 Ml PO QID Potassium Chloride ER (Potassium Chloride) 20 Meq Tab 20 Meq PO TID Dilantin (Phenytoin Extended) 100 Mg Cap 100 Mg PO TID Propranolol (Propranolol HCl) 20 Mg Tab 20 Mg PO Q12HR Hydralazine (Hydralazine HCl) 10 Mg Tab 10 Mg PO BID Take with a meal Eliquis (Apixaban) 2.5 Mg Tab 2.5 Mg PO BID Omeprazole 20 Mg Tab 20 Mg PO DAILY Magnesium 400 Mg Tab 400 Mg PO DAILY Lipitor (Atorvastatin Calcium) 20 Mg Tab 20 Mg PO HS Levothyroxine (Levothyroxine Sodium) 50 Mcg Tab 50 Mcg PO DAILY Januvia (Sitagliptin Phosphate) 100 Mg Tab 100 Mg PO DAILY Flomax (Tamsulosin HCl) 0.4 Mg Cap 0.4 Mg PO HS . Current Medications Medications (Trade) Dose Ordered Sig/Braden Route Start Time Stop Time Status Last Admin (NS Flush) 2 ml UNSCH PRN FLUSH 10/14/16 23:45 (NS Flush) 2 ml BID FLUSH 10/15/16 09:00 10/15/16 23:43 (Narcan Inj) 0.4 mg UNSCH PRN IV 10/14/16 23:45 (Dilantin Inj) 100 mg Q8HR IV 10/15/16 06:00 10/16/16 06:50 (D50w (Vial) Inj) 25 ml UNSCH PRN IV PUSH 10/14/16 23:45 Glucagon 1 mg 1 mg UNSCH PRN OTHER 10/14/16 23:45 Dextrose/Sodium Chloride 1,000 ml @ 42 mls/hr [id number] IV 10/14/16 23:45 10/15/16 03:30 (Zosyn 4.5 Gm Premix) 100 ml @ 200 mls/hr Q6H IV 10/15/16 05:00 10/16/16 06:50 (Protonix Inj) 40 mg DAILY IV PUSH 10/15/16 09:00 10/16/16 09:31 (Synthroid Inj) 50 mcg DAILY@06 IV PUSH 10/15/16 06:00 10/16/16 06:52 Family History Brother has a history of cerebral vascular disease and asthma. . Substance Use Tobacco: Previous tobacco user, quit at age 52. Alcohol: No EtOH consumption Prescription med abuse: None known Illicits: None known . Psychosocial History Patient and his are both born and raised in [place], growing up in the same neighborhood. 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 He and his , Jenn Skaggs, have been for approximately 65 years. Together they had 3 sons (Yasir, Wilfredo and Triston). They also adopted their grandson, Fabio, who is 27 years old. Mr. Skaggs enjoyed deep-sea fishing, scuba diving, camping and cruising per his . . Spiritual/Cultural Factors Gnosticism naveen . Family/friends goals: PEG tube placement today, then considering returning to [facility] with Hospice. . Ethical and Legal Issues Per [place] statutes, in the absence of written advanced directives healthcare proxy decision making will fall to the patient's , Jenn Skaggs. . Physical Exam Vital Signs Date Time Temp Pulse Resp B/P Pulse Ox O2 Delivery O2 Flow Rate FiO2 10/16/16 08:00 95.4 68 126/64 97 10/16/16 04:00 96.9 69 20 149/76 94 10/16/16 00:33 69 10/16/16 00:00 95.9 69 20 138/72 94 10/15/16 20:00 97.1 65 20 138/69 95 10/15/16 16:00 60 17 138/65 95 10/15/16 14:30 58 19 125/61 96 Room Air . 10/15/16 10/16/16 19:00 07:00 Intake Total 0 ml Balance 0 ml Intake Oral 0 ml # Voids 1 3 . Exam CONSTITUTIONAL/GENERAL: This is a frail, elderly male patient, in no apparent distress. TUBES/LINES/DRAINS: PIV x1, Joseph catheter SKIN: No jaundice, rashes, or lesions. No wounds seen anteriorly. Skin temperature appropriate. Not diaphoretic. HEAD: Atraumatic. Normocephalic. EYES: Pupils equal and round and reactive. Extraocular motions intact. No scleral icterus. No injection or drainage. Fundi not examined. ENT: Hearing grossly normal. Nose without bleeding or purulent drainage. NECK: Trachea midline. Supple, nontender. No palpable thyroid enlargement or nodularity. CARDIOVASCULAR: Regular rate and rhythm without murmurs, gallops, or rubs. No JVD. Peripheral pulses symmetric. RESPIRATORY/CHEST: Symmetric, unlabored respirations. Clear to auscultation. Breath sounds diminished bilaterally. No wheezes, rales, or rhonchi. GASTROINTESTINAL: Abdomen soft, non-tender, nondistended. No hepato-splenomegaly , or palpable masses. No guarding. Bowel sounds present. GENITOURINARY: Without palpable bladder distension. Joseph catheter in place. MUSCULOSKELETAL: Extremities without clubbing, cyanosis, or edema. LYMPHATICS: No palpable cervical or supraclavicular adenopathy. NEUROLOGICAL: Lethargic. Arouses to verbal stimuli. Garbled speech. Moves all extremities. PSYCHIATRIC: Difficult to assess secondary to neurological status. No obvious anxiety/depression. no apparent hallucinations or other psychotic thought process. . Diagnostic Tests Laboratory Laboratory Tests Test 10/14/16 10/14/16 10/14/16 10/15/16 21:34 21:40 21:54 03:35 White Blood Count 7.3 TH/MM3 6.5 TH/MM3 (4.0-11.0) (4.0-11.0) Red Blood Count 4.18 MIL/MM3 3.81 MIL/MM3 (4.50-5.90) (4.50-5.90) Hemoglobin 12.7 GM/DL 11.5 GM/DL (13.0-17.0) (13.0-17.0) Hematocrit 37.1 % 34.4 % (39.0-51.0) (39.0-51.0) Mean Corpuscular Volume 88.7 FL 90.2 FL (80.0-100.0) (80.0-100.0) Mean Corpuscular Hemoglobin 30.5 PG 30.2 PG (27.0-34.0) (27.0-34.0) Mean Corpuscular Hemoglobin 34.3 % 33.5 % Concent (32.0-36.0) (32.0-36.0) Red Cell Distribution Width 13.9 % 13.9 % (11.6-17.2) (11.6-17.2) Platelet Count 221 TH/MM3 198 TH/MM3 (150-450) (150-450) Mean Platelet Volume 7.8 FL 7.9 FL (7.0-11.0) (7.0-11.0) Neutrophils (%) (Auto) 79.3 % 73.7 % (16.0-70.0) (16.0-70.0) Lymphocytes (%) (Auto) 10.4 % 13.0 % (9.0-44.0) (9.0-44.0) Monocytes (%) (Auto) 8.7 % (0.0-8.0) 11.3 % (0.0-8.0) Eosinophils (%) (Auto) 1.4 % (0.0-4.0) 1.7 % (0.0-4.0) Basophils (%) (Auto) 0.2 % (0.0-2.0) 0.3 % (0.0-2.0) Neutrophils # (Auto) 5.8 TH/MM3 4.8 TH/MM3 (1.8-7.7) (1.8-7.7) Lymphocytes # (Auto) 0.8 TH/MM3 0.8 TH/MM3 (1.0-4.8) (1.0-4.8) Monocytes # (Auto) 0.6 TH/MM3 0.7 TH/MM3 (0-0.9) (0-0.9) Eosinophils # (Auto) 0.1 TH/MM3 0.1 TH/MM3 (0-0.4) (0-0.4) Basophils # (Auto) 0.0 TH/MM3 0.0 TH/MM3 (0-0.2) (0-0.2) CBC Comment DIFF FINAL DIFF FINAL Differential Comment Sodium Level 138 MEQ/L 140 MEQ/L (136-145) (136-145) Potassium Level 4.2 MEQ/L 3.8 MEQ/L (3.5-5.1) (3.5-5.1) Chloride Level 104 MEQ/L 105 MEQ/L (98-107) (98-107) Carbon Dioxide Level 24.8 MEQ/L 26.5 MEQ/L (21.0-32.0) (21.0-32.0) Anion Gap 9 MEQ/L (5-15) 9 MEQ/L (5-15) Blood Urea Nitrogen 19 MG/DL (7-18) 17 MG/DL (7-18) Creatinine 1.07 MG/DL 1.00 MG/DL (0.60-1.30) (0.60-1.30) Estimat Glomerular Filtration 66 ML/MIN (>89) 71 ML/MIN (>89) Rate Random Glucose 122 MG/DL 121 MG/DL (74-106) (74-106) Calcium Level 9.2 MG/DL 9.0 MG/DL (8.5-10.1) (8.5-10.1) Phenytoin (Dilantin) Level 2.9 MCG/ML (10.0-20.0) Urine Color YELLOW (YELLW/STRAW) Urine Turbidity HAZY (CLEAR) Urine pH 5.5 (5.0-8.5) Urine Specific Davis 1.011 (1.002-1.035) Urine Protein NEG mg/dL (NEG-TRACE) Urine Glucose (UA) NEG mg/dL (NEG) Urine Ketones NEG mg/dL (NEG) Urine Occult Blood NEG (NEG) Urine Nitrite POS (NEG) Urine Bilirubin NEG (NEG) Urine Urobilinogen LESS THAN 2.0 MG/DL (LESS THAN 2.0) Urine Leukocyte Esterase LARGE (NEG) Urine RBC LESS THAN 1 /hpf (0-3) Urine WBC 10 /hpf (0-5) Urine Bacteria FEW /hpf (NONE) Microscopic Urinalysis Comment CULTURE INDICATED Prothrombin Time 10.9 SEC (9.8-11.6) Prothromb Time International 1.0 RATIO Ratio Activated Partial 25.7 SEC Thromboplast Time (24.3-30.1) Test 10/16/16 08:14 White Blood Count 5.7 TH/MM3 (4.0-11.0) Red Blood Count 3.92 MIL/MM3 (4.50-5.90) Hemoglobin 11.8 GM/DL (13.0-17.0) Hematocrit 35.1 % (39.0-51.0) Mean Corpuscular Volume 89.4 FL (80.0-100.0) Mean Corpuscular Hemoglobin 30.0 PG (27.0-34.0) Mean Corpuscular Hemoglobin 33.6 % Concent (32.0-36.0) Red Cell Distribution Width 14.0 % (11.6-17.2) Platelet Count 206 TH/MM3 (150-450) Mean Platelet Volume 7.8 FL (7.0-11.0) Neutrophils (%) (Auto) 75.1 % (16.0-70.0) Lymphocytes (%) (Auto) 10.9 % (9.0-44.0) Monocytes (%) (Auto) 11.4 % (0.0-8.0) Eosinophils (%) (Auto) 2.2 % (0.0-4.0) Basophils (%) (Auto) 0.4 % (0.0-2.0) Neutrophils # (Auto) 4.3 TH/MM3 (1.8-7.7) Lymphocytes # (Auto) 0.6 TH/MM3 (1.0-4.8) Monocytes # (Auto) 0.6 TH/MM3 (0-0.9) Eosinophils # (Auto) 0.1 TH/MM3 (0-0.4) Basophils # (Auto) 0.0 TH/MM3 (0-0.2) CBC Comment DIFF FINAL Differential Comment Sodium Level 139 MEQ/L (136-145) Potassium Level 3.5 MEQ/L (3.5-5.1) Chloride Level 105 MEQ/L (98-107) Carbon Dioxide Level 26.2 MEQ/L (21.0-32.0) Anion Gap 8 MEQ/L (5-15) Blood Urea Nitrogen 14 MG/DL (7-18) Creatinine 1.06 MG/DL (0.60-1.30) Estimat Glomerular Filtration 67 ML/MIN (>89) Rate Random Glucose 111 MG/DL (74-106) Calcium Level 8.8 MG/DL (8.5-10.1) . Result Diagram: 10/16/16 0814 10/16/1614 Microbiology Microbiology Date/Time Procedure Status Source Growth 10/14/16 21:40 Urine Culture - Preliminary Resulted Urine Clean Catch IMMATURE GROWTH - REINCUBATE . Imaging Last 72 hours Impressions Chest X-Ray 10/14/162114 Signed Impressions: Service Date/Time: Friday, October 14, 2016 21:28 - CONCLUSION: Bilateral peripheral airspace disease. Infectious infiltrate suspected. Agustin Cary Jr., MD . Patient/Family Conference Present at Family Conference: Met with patient's and son (Yasir) at patient's bedside to discuss patient' s current clinical condition, diagnostic results and medical treatment goals. Also spoke to patient's son, Wilfredo, via telephone. Next time. Family Conference Location: Bedside, Telephone Issues Discussed: * Palliative care role, purpose, approach * Additional medical, psychosocial, and spiritual history * Patients general health, functional status, and cognitive changes in the months leading up to the current hospitalization * Patient/family understanding of the current medical problems * Patient/family understanding of prognosis * Patients goals of care as best understood from advance directives and/or conversations and/or values * Current medical treatment options and benefits/burdens of those options * Likely scenarios comparing ongoing aggressive care with a transition to comfort measures only * Questions answered to the best of my ability * Palliative care contact information provided . Assessment and Plan Disease Oriented Problem List: (1) History of subdural hematoma (2) History of pulmonary embolus (PE) (3) Diabetes mellitus (4) BPH (benign prostatic hyperplasia) (5) History of pulmonary embolism (6) UTI (urinary tract infection) (7) Pneumonia (8) CVA, old, aphasia (9) Chronic kidney disease (10) Dysphagia Symptom Scale: (1) Pain (2) Aphasia (3) Dysphasia Comment: Patient was tolerating a pured diet with thin liquids until recently when he began having difficulty swallowing and aspiration. Patient failed a swallow evaluation on 10/13/16. Patient has since remained NPO. PEG tube placement later today 10/16/16 . Pertinent Non-Medical Issues Psychosocial:Patient and his are both born and raised in [place], growing up in the same neighborhood. 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 He and his , Jenn Skaggs, have been for approximately 65 years. Together they had 3 sons (Yasir, Wilfredo and Triston). They also adopted their grandson, Fabio, who is 27 years old. Mr. Skaggs enjoyed deep-sea fishing, scuba diving, camping and cruising per his . Spiritual: Gnosticism naveen. Legal: Per [place] statutes, in the absence of written advanced directives healthcare proxy decision-making falls to the patient's , Jenn Skaggs. Ethical issues impacting care: No known ethical issues impacting care at this time. . Important Contacts Jenn Skaggs, spouse: [phone] Wilfredo Skaggs, son: [phone] Yasir Skaggs III, son: [phone] . Prognosis Mr. Skaggs is an 86-year-old male with a complex medical history. Status post CVA at the age of 52 with residual right-sided weakness and significant aphasia. The patient's reports he was completely independent until 12/04 when he had a fall resulting in a subdural hematoma. Since that time the patient has been bedbound, unable to bear weight. The patient has had an 30+ pound weight loss over the past year. Patient has been hospitalized approximately 3 time in the past 6 months with recurrent UTI and dehydration. He has worsening dementia per his brother, who states he often does not recognize his family. Patient now having increased difficulty swallowing and episodes of aspiration. Failed a swallow evaluation on 10/13/16 with recommendations to remain NPO with bypass nutrition. Currently hospitalized for management of pneumonia, UTI and possible PEG tube placement. Given patient advanced age, multiple comorbid conditions and documented 12 month decline, his overall prognosis is likely poor. . . Code Status: Alternative Code (compressions, medications and cardioversion - NO INTUBATION) Plan * ALTERNATE CODE - compression, medications and cardioversion are accepted. NO INTUBATION PER * Decision making: Per [place] statutes, in the absence of written advanced directives healthcare proxy decision-making falls to the patient's Jenn Skaggs. HCP: JENN SKAGGS * Goals: PEG tube placement later today, the family considering transitioning to more comfort focused care at discharge. * Of note, patient's son (Wilfredo) IS NOT the healthcare proxy decision maker. Wilfredo states he has documentation that designating him as the DURABLE POWER OF FLIGHT TEST ENGINEER for finances only. The patient's , Jenn Skaggs, is the healthcare proxy decision maker. I have requested Wilfredo bring copies of available written advanced directives to [facility] to be scanned into the patient's EMR. * Discussed EGD/PEG procedure with patient's and son (Yasir). Patient's would like to proceed with procedure. Nurse, Yris, was present and witnessed this conversation. * Palliative care will follow up 10/17/16-family considering hospice. * Palliative care contact information provided to the patient's and son. * Spoke to patient's son, Wilfredo Skaggs, via telephone. Contact #[phone] * Symptom managementdysphasia: Patient was tolerating a pured diet with thin liquids until recently when he began having difficulty swallowing and aspiration. Patient failed a swallow evaluation on 10/13/16. Patient has since remained NPO. * Symptom managementpain: Patient showing no nonverbal signs or symptoms of pain on exam. Possible causes of pain may include immobility, bedbound status, invasive lines, PEG tube placement later today. Will need to observe patient closely for nonverbal signs and symptoms of pain status post PEG tube placement as the patient is unable to verbally make his needs known. * Palliative care will continue to follow this patient throughout his hospitalization to establish trust, assist with symptom management and clarification of medical treatment goals. . Thank you for the opportunity to participate in the care of Mr. Skaggs. . Attestation To help prompt me to consider important information that might be impacting today's encounter and assessment, information from prior notes written by myself or my colleagues may have been "brought forward" into today's note. My signature on this note, however, is an attestation that I personally performed the exam, history, and/or decision-making noted today, and, unless otherwise indicated, the interactions with patient, family, and staff as well as the review of records all occurred today. I also attest that the listed assessment and stated plan reflect my best clinical judgment today based on the combination of historical information, prior notes, and today's exam/ interactions. When time spent is documented, it refers only to time spent today by the signer, or if indicated, combined time spent today by collaborating physician/nurse practitioner. . Migdalia Mota Oct 16, 2016 11:34
[2016-10-16] MEDS ORDERED: PROPOFOL 200 MG/20 ML AMP IV ONE (14:46)
[2016-10-16] MEDS ORDERED: ceFAZolin INJ 1,000 MG VIAL IV ONE (15:42)
[2016-10-16] MEDS: DEXT 5%-NACL 0.9% 1000 ML INJ 1,000 ML IV SCH (22:35)
[2016-10-17 04:15] VITALS: BP 145/70; PULSE 72; RESP 20; TEMP 96.1; O2SAT 94
[2016-10-17] MEDS: PHENYTOIN INJ 100 MG/2 ML VIAL IV SCH (06:09)
[2016-10-17] MEDS: PIPERACIL-TAZO 4.5 GM PREMIX 100 ML IV SCH ×2 (06:09→13:26)
[2016-10-17] MEDS: LEVOTHYROXINE SODIUM 100 MCG VIAL IV PUSH SCH (06:09)
[2016-10-17] MEDS: PHENYTOIN SUSP 100 MG/4 ML CUP TUBE SCH ×3 (09:00→18:14)
[2016-10-17] MEDS: SODIUM CHLORIDE 0.9% FLUSH 5 ML FLUSH FLUSH SCH ×2 (09:00→21:00)
[2016-10-17] MEDS ORDERED: hydrALAZINE HCL 10 MG TAB PO SCH (09:00)
[2016-10-17] MEDS ORDERED: LEVOTHYROXINE SODIUM 50 MCG TAB PO SCH (09:00)
[2016-10-17] MEDS ORDERED: PHENYTOIN SODIUM 100 MG CAP PO SCH (09:00)
[2016-10-17] MEDS: LEVOTHYROXINE SODIUM 50 MCG TAB TUBE SCH (09:00)
[2016-10-17] MEDS ORDERED: PROPRANOLOL HCL 20 MG TAB PO SCH (09:00)
[2016-10-17 09:09] VITALS: BP 124/82; PULSE 76; RESP 20; O2SAT 96
--- NOTE | 2016-10-17 10:01 | HHI.PR ---
Subjective Remarks Follow-up for dysphagia and aspiration. The patient had PEG tube placed yesterday. Clear to start on tube feedings today. Patient remains at his baseline neuro status, noncommunicative. Objective Vitals Vital Signs Date Time Temp Pulse Resp B/P Pulse Ox O2 Delivery O2 Flow Rate FiO2 10/17/16 09:09 76 20 124/82 96 10/17/16 04:15 96.1 72 20 145/70 94 10/16/16 23:55 96.2 78 19 152/74 94 10/16/16 21:15 98 21 10/16/16 20:22 97.2 79 20 156/72 93 10/16/16 18:28 75 10/16/16 16:17 70 16 131/72 99 10/16/16 16:08 72 16 131/66 95 10/16/16 16:00 98.0 76 16 117/66 93 10/16/16 15:12 95.4 68 18 126/64 97 10/16/16 15:09 97.7 75 20 140/69 95 10/16/16 12:00 96.6 73 20 132/70 95 I/O 10/16/16 10/16/16 10/16/16 10/17/16 10/17/16 10/17/16 07:00 15:00 23:00 07:00 15:00 23:00 Intake Total 0 ml 600 ml Balance 0 ml 600 ml Intake Oral 0 ml IV Total 300 ml Other 300 ml # Voids 2 Result Diagram: 10/16/1614 10/16/1614 Imaging Last Impressions Chest X-Ray 10/14/162114 Signed Impressions: Service Date/Time: Friday, October 14, 2016 21:28 - CONCLUSION: Bilateral peripheral airspace disease. Infectious infiltrate suspected. Agustin Cary Jr., MD Objective Remarks GENERAL: Well-developed well-nourished. In no acute distress. SKIN: Warm and dry. No lesions noted. HEENT: Normocephalic. Pupils equal and round. Mucous membranes pink and moist. CARDIOVASCULAR: Regular rate and rhythm. No murmur appreciated. RESPIRATORY: No accessory muscle use. Clear to auscultation. Breath sounds equal bilaterally. GASTROINTESTINAL: Abdomen soft, non-tender, nondistended. Bowel sounds x4. PEG tube in place with abdominal binder. MUSCULOSKELETAL: No obvious deformities. No clubbing or cyanosis. No edema. NEUROLOGICAL: Awake and alert. Nonverbal, mumbling speech. Moves upper and lower extremities spontaneously. PSYCHIATRIC: insight and judgment limited A/P Problem List: (1) Problems with swallowing ICD Code: R13.10 Status: Acute (2) UTI (urinary tract infection) ICD Code: N39.0 Status: Acute (3) Pneumonia ICD Code: J18.9 Status: Acute Assessment and Plan 86-year-old male with past medical history of CVA with aphasia was sent from SNF due to failed swallow evaluation and silent aspiration Dysphagia secondary to past CVA: Failed swallow eval as outpatient. PEG tube placed by GI 10/16. Palliative care consulted to assist with further goals of care. IVF pending starting on tube feeds. Appreciate dietitian recommendations for tube feedings, will start tube feeding today. Resume home meds per PEG tube as able. Aspiration pneumonia: Asymptomatic. Chest x-ray with bilateral peripheral airspace disease with infectious infiltrates suspected. Secondary to the above. Afebrile with no leukocytosis. Empiric coverage with IV Zosyn, transition to oral Augmentin at NH. O2 and nebs as needed. UTI: Abnormal UA with evidence of UTI. Continue antibiotics as above. Follow- up urine culture, currently with gram-negative rods. Chronic anticoagulation with history of GI bleed, PE, and CVA: Held Eliquis with GI procedure as above. Discussed with cain BOYLE to start back on Eliquis 24 hours after PEG tube placed. History of seizure disorder: On Dilantin with subtherapeutic level. Given IV Dilantin. Resume oral Dilantin today. Seizure precautions. DVT prophylaxis: Eliquis, SCDs Written by Kai Talavera, acting as scribe for Dr. Fournier on 10/17/16 at 10:01. The documentation accurately reflects the work performed [id number] by me Dr. Fournier on 10/17/16 at 10:01. Discharge Planning Discharge planning back to SNF when tolerating tube feeds. Case management consulted. Problem Qualifiers (1) UTI (urinary tract infection): Qualified Code: N30.00 - Acute cystitis without hematuria (2) Pneumonia: Qualified Code: J18.9 - Pneumonia of both lower lobes due to infectious organism Kai Talavera Oct 17, 2016 10:01 Korina Fournier MD Oct 17, 2016 13:33
[2016-10-17] MEDS ORDERED: HYDR10TA23 TUBE (10:05)
[2016-10-17] MEDS ORDERED: SITA1TAB2 TUBE (10:05)
[2016-10-17] MEDS ORDERED: OMEP20TA TUBE (10:05)
[2016-10-17] MEDS ORDERED: PHEN125S TUBE (10:05)
[2016-10-17] MEDS ORDERED: LEVO.05 TUBE (10:05)
[2016-10-17] MEDS ORDERED: APIX2.5T PEG (10:05)
[2016-10-17] MEDS ORDERED: AUGM875T TUBE (10:06)
[2016-10-17] MEDS ORDERED: LIPI20TA PEG (10:06)
[2016-10-17] MEDS ORDERED: PROP20TA3 TUBE (10:06)
[2016-10-17 13:24] VITALS: BP 135/70; PULSE 70; RESP 16; TEMP 98.8; O2SAT 96
[2016-10-17] MEDS: PANTOPRAZOLE SODIUM 40 MG VIAL IV PUSH SCH (13:27)
[2016-10-17] MEDS: hydrALAZINE HCL 10 MG TAB TUBE SCH ×2 (13:40→22:27)
[2016-10-17] MEDS: PROPRANOLOL HCL 20 MG TAB TUBE SCH ×2 (13:40→22:27)
[2016-10-17] MEDS ORDERED: QUEtiapine FUMARATE 25 MG TAB PO PRN (15:45)
--- NOTE | 2016-10-17 16:26 | HHI.GIFU ---
GI Follow-up Note Consult Follow-up Subjective: Patient has oropharyngeal dysphagia, aspiration, dehydration-s/p PEG yesterday.Tolerating diet well.confused Objective: PHYSICAL EXAMINATION: Vitals signs stable No fever Vital Signs Date Time Temp Pulse Resp B/P Pulse Ox O2 Delivery O2 Flow Rate FiO2 10/17/16 13:24 98.8 70 16 135/70 96 10/17/16 09:09 76 20 124/82 96 HEENT: Pupils round and reactive to light; normocephalic; atraumatic; no jaundice. Throat is clear. NECK: Neck is supple, no JVD, no lymphadenopathy. CHEST: Chest is clear to auscultation and percussion. CARDIAC: Regular rate and rhythm with no murmur gallop or rubs. ABDOMEN: Soft, nondistended, nontender; no hepatosplenomegaly; bowel sounds are present in all four quadrants, peg site ok, abdominal binder on EXTREMITIES: No clubbing, cyanosis, or edema. SKIN: Normal; no rash; no jaundice. HEARING AID ASSISTANT: No focal deficits; alert , confused Available Data (labs, X- Rays, Procedues) : Laboratory Tests Test 10/16/16 08:14 White Blood Count 5.7 TH/MM3 Red Blood Count 3.92 MIL/MM3 Hemoglobin 11.8 GM/DL Hematocrit 35.1 % Mean Corpuscular Volume 89.4 FL Mean Corpuscular Hemoglobin 30.0 PG Mean Corpuscular Hemoglobin 33.6 % Concent Red Cell Distribution Width 14.0 % Platelet Count 206 TH/MM3 Mean Platelet Volume 7.8 FL Neutrophils (%) (Auto) 75.1 % Lymphocytes (%) (Auto) 10.9 % Monocytes (%) (Auto) 11.4 % Eosinophils (%) (Auto) 2.2 % Basophils (%) (Auto) 0.4 % Neutrophils # (Auto) 4.3 TH/MM3 Lymphocytes # (Auto) 0.6 TH/MM3 Monocytes # (Auto) 0.6 TH/MM3 Eosinophils # (Auto) 0.1 TH/MM3 Basophils # (Auto) 0.0 TH/MM3 CBC Comment DIFF FINAL Differential Comment Sodium Level 139 MEQ/L Potassium Level 3.5 MEQ/L Chloride Level 105 MEQ/L Carbon Dioxide Level 26.2 MEQ/L Anion Gap 8 MEQ/L Blood Urea Nitrogen 14 MG/DL Creatinine 1.06 MG/DL Estimat Glomerular Filtration 67 ML/MIN Rate Random Glucose 111 MG/DL Calcium Level 8.8 MG/DL ASSESSMENT/PLAN: oropharyngeal dysphagia -s/p peg yesterday Recommendations abdominal binder, mittens to prevent peg removal fu peg instructions call us as needed It was a pleasure seeing Yasir Skaggs Jr. Thank you for this consult. Entered by: France Pocne MD Oct 17, 2016 16:26
[2016-10-17 20:00] VITALS: BP 153/70; PULSE 72; RESP 18; TEMP 96.7; O2SAT 95; O2SAT 97
[2016-10-17] MEDS ORDERED: TAMSULOSIN HCL 0.4 MG CAP PO SCH (21:00)
[2016-10-17] MEDS ORDERED: ATORVASTATIN 20 MG TAB PO SCH (21:00)
[2016-10-17] MEDS ORDERED: ATORVASTATIN 20 MG TAB PEG SCH (21:00)
[2016-10-17] MEDS: AMOXICILLIN/CLAVULANATE K 875 MG TAB TUBE SCH (22:26)
[2016-10-17] MEDS: APIXABAN 2.5 MG TABLET PEG SCH (22:27)
[2016-10-18] VITALS: BP 106/58; PULSE 73; RESP 18; TEMP 97; O2SAT 95
[2016-10-18 04:00] VITALS: BP 116/61; PULSE 64; RESP 19; TEMP 96.1; O2SAT 96
[2016-10-18] MEDS: LEVOTHYROXINE SODIUM 50 MCG TAB TUBE SCH (06:00)
[2016-10-18 07:57] VITALS: O2SAT 92
[2016-10-18 08:09] VITALS: BP 117/63; PULSE 68; RESP 21; TEMP 97.5; O2SAT 91
[2016-10-18] MEDS ORDERED: LANSOPRAZOLE SOLUTAB 15 MG TAB NG SCH (09:00)
[2016-10-18] MEDS: PHENYTOIN SUSP 100 MG/4 ML CUP TUBE SCH ×2 (09:00→13:18)
[2016-10-18] MEDS: SODIUM CHLORIDE 0.9% FLUSH 5 ML FLUSH FLUSH SCH (09:00)
--- NOTE | 2016-10-18 10:03 | HHI.PR ---
Subjective Remarks Follow up for dysphagia with aspiration, s/p PEG tube placement. The patient is tolerating tube feeds. He has been out of restraints since yesterday. He is pleasant, smiling. No acute events overnight. Objective Vitals Vital Signs Date Time Temp Pulse Resp B/P Pulse Ox O2 Delivery O2 Flow Rate FiO2 10/18/16 08:09 97.5 68 21 117/63 91 10/18/16 04:00 96.1 64 19 116/61 96 10/18/16 00:00 97.0 73 18 106/58 95 10/17/16 20:00 95 10/17/16 20:00 72 10/17/16 20:00 96.7 72 18 153/70 97 10/17/16 13:24 98.8 70 16 135/70 96 I/O 10/17/16 10/17/16 10/17/16 10/18/16 10/18/16 10/18/16 07:00 15:00 23:00 07:00 15:00 23:00 Intake Total 0 ml Balance 0 ml Intake Oral 0 ml # Voids 1 1 # Bowel Movements 1 Result Diagram: 10/16/1614 10/16/1614 Imaging Last Impressions Chest X-Ray 10/14/162114 Signed Impressions: Service Date/Time: Friday, October 14, 2016 21:28 - CONCLUSION: Bilateral peripheral airspace disease. Infectious infiltrate suspected. Agustin Cary Jr., MD Objective Remarks GENERAL: Well-nourished, well-developed elderly male patient in [facility]. Pleasant and smiling today. SKIN: Warm and dry. No rash. HEAD: Normocephalic. Atraumatic. EYES: Pupils equal and round. No scleral icterus. No injection or drainage. ENT: No nasal bleeding or discharge. Mucous membranes pink and moist. NECK: Supple. Trachea midline. CARDIOVASCULAR: Regular rate and rhythm. S1, S2 noted. No murmur appreciated. RESPIRATORY: No accessory muscle use. Clear to auscultation. Breath sounds equal bilaterally. GASTROINTESTINAL: Abdomen soft, non-tender, nondistended. Normoactive bowel sounds x4. PEG tube in place with abdominal binder. MUSCULOSKELETAL: No obvious deformities. Extremities without clubbing, cyanosis , or edema. NEUROLOGICAL: Awake and alert. No obvious cranial nerve deficits. Motor grossly within normal limits. Mostly nonverbal, does mumble incomprehensible sounds. PSYCHIATRIC: insight and judgment limited Medications and IVs Current Medications Medications (Trade) Dose Ordered Sig/Braden Route Start Time Stop Time Status Last Admin (NS Flush) 2 ml UNSCH PRN FLUSH 10/14/16 23:45 (NS Flush) 2 ml BID FLUSH 10/15/16 09:00 10/16/16 22:34 (Narcan Inj) 0.4 mg UNSCH PRN IV 10/14/16 23:45 (D50w (Vial) Inj) 25 ml UNSCH PRN IV PUSH 10/14/16 23:45 (Glucagon Inj) 1 mg UNSCH PRN OTHER 10/14/16 23:45 (Lipitor) 20 mg HS PEG 10/17/16 21:00 10/17/16 22:27 (Synthroid) 50 mcg DAILY@06 TUBE 10/17/16 09:00 (Dilantin Liq) 100 mg TID TUBE 10/17/16 09:00 10/17/16 18:14 (Inderal) 20 mg Q12HR TUBE 10/17/16 09:00 10/18/16 10:32 (Apresoline) 10 mg BID TUBE 10/17/16 09:00 10/18/16 10:33 (Eliquis) 2.5 mg BID PEG 10/17/16 21:00 10/18/16 10:32 (Augmentin) 875 mg Q12HR TUBE 10/17/16 21:00 10/18/16 10:32 (Prevacid Odt) 15 mg DAILY NG 10/18/16 09:00 10/18/16 10:32 (SEROquel) 25 mg HS PRN PO 10/17/16 15:45 10/17/16 22:27 A/P Problem List: (1) Problems with swallowing ICD Code: R13.10 Status: Acute (2) UTI (urinary tract infection) ICD Code: N39.0 Status: Acute (3) Pneumonia ICD Code: J18.9 Status: Acute Assessment and Plan 86-year-old male with past medical history of CVA with aphasia was sent from SNF due to failed swallow evaluation and silent aspiration Dysphagia secondary to prior CVA: Failed swallow eval as outpatient. PEG tube placed by GI 10/16. Palliative care consulted to assist with further goals of care. S/p IVF. Appreciate dietitian recommendations for tube feedings. Now tolerating tube feeds. Resume home meds per PEG tube as able. Aspiration pneumonia: Asymptomatic. CXR with bilateral peripheral airspace disease with infectious infiltrates suspected. Secondary to the above. Afebrile with no leukocytosis. Empiric coverage with IV Zosyn, transition to oral Augmentin at [place]. O2 and nebs as needed. UTI: Abnormal UA with evidence of UTI. Continue antibiotics as above. Urine culture with pansensitive E.coli. Will d/c on Augmentin. Chronic anticoagulation with history of GI bleed, PE, and CVA: Held Eliquis with GI procedure as above. Discussed with GI, okay to start back on Eliquis 24 hours after PEG tube placed. Eliquis restarted. History of seizure disorder: On Dilantin with subtherapeutic level. Given IV Dilantin. Resume oral Dilantin. Seizure precautions. DVT prophylaxis: Eliquis, SCDs Written by Hiral Kinney, acting as scribe for Dr. Fournier on 10/18/16 at 10:03. The documentation accurately reflects the work performed [id number] by me Dr. Fournier on 10/18/16 at 10:03. Discharge Planning D/c back to SNF. See discharge summary. Problem Qualifiers (1) UTI (urinary tract infection): Qualified Code: N30.00 - Acute cystitis without hematuria (2) Pneumonia: Qualified Code: J18.9 - Pneumonia of both lower lobes due to infectious organism Hiral Kinney PA-C Oct 18, 2016 10:03 Korina Fournier MD Oct 18, 2016 18:00
[2016-10-18] MEDS: PROPRANOLOL HCL 20 MG TAB TUBE SCH (10:32)
[2016-10-18] MEDS: AMOXICILLIN/CLAVULANATE K 875 MG TAB TUBE SCH (10:32)
[2016-10-18] MEDS: APIXABAN 2.5 MG TABLET PEG SCH (10:32)
[2016-10-18] MEDS: hydrALAZINE HCL 10 MG TAB TUBE SCH (10:33)
[2016-10-18 12:05] VITALS: BP 136/78; PULSE 70; RESP 18; TEMP 96.4; O2SAT 92
--- NOTE | 2016-10-18 12:08 | HHI.DS ---
cc: Dr. Deandre Parada Discharge Summary Admission Date Oct 14, 2016 at 23:42 Discharge Date: Oct 18, 2016 Admitting Diagnosis pneumonia. UTI. Unable to swallow. Subtherapeutic medication leve (1) Dysphagia ICD Code: R13.10 Diagnosis: Principal (2) S/P percutaneous endoscopic gastrostomy (PEG) tube placement ICD Code: Z93.1 Diagnosis: Principal (3) Problems with swallowing ICD Code: R13.10 Diagnosis: Principal (4) UTI (urinary tract infection) ICD Code: N39.0 Diagnosis: Secondary (5) Pneumonia ICD Code: J18.9 Diagnosis: Principal (6) CVA, old, aphasia ICD Code: I69.320 Diagnosis: Secondary Procedures EGD with peg tube placement on 10/16 Brief History - From Admission history from ER physician communication, retirement transfer notes, and review of medical records. Patient himself is elderly gentleman with significant aphasia secondary to previous CVAs. He pretty much answers no to everything line of questioning. He is not able to make a conversation. Cannot make a sentence. As per retirement transfer notes, patient was sent by doctors there for PEG tube placement. Patient was at the nursing facility after having falls and previous CVAs. He was on pured and thin liquids diet over there. He then had Speech and Swallow Evaluation on October 13, 2016 at which he essentially failed. He was therefore put on nothing by mouth status. He was sent to ER for PEG tube placement likely because patient also has been missing his medications. He is on Dilantin at the nursing facility for history of seizures. In the emergency room, patient's Level Was Subtherapeutic. In the Emergency Room, Further Workup Revealed Bilateral Infiltrates on His Chest X-Ray. CBC/BMP: 10/16/16 0814 10/16/16 0814 Significant Findings Laboratory Tests Test 10/16/16 08:14 Red Blood Count 3.92 MIL/MM3 (4.50-5.90) Hemoglobin 11.8 GM/DL (13.0-17.0) Hematocrit 35.1 % (39.0-51.0) Neutrophils (%) (Auto) 75.1 % (16.0-70.0) Monocytes (%) (Auto) 11.4 % (0.0-8.0) Lymphocytes # (Auto) 0.6 TH/MM3 (1.0-4.8) Estimat Glomerular Filtration 67 ML/MIN (>89) Rate Random Glucose 111 MG/DL (74-106) Imaging Last Impressions Chest X-Ray 10/14/16 5835 Signed Impressions: Service Date/Time: Friday, October 14, 2016 21:28 - CONCLUSION: Bilateral peripheral airspace disease. Infectious infiltrate suspected. Agustin Cary Jr., MD PE at Discharge GENERAL: Well-nourished, well-developed elderly male patient in [place]. Pleasant and smiling today. SKIN: Warm and dry. No rash. HEAD: Normocephalic. Atraumatic. EYES: Pupils equal and round. No scleral icterus. No injection or drainage. ENT: No nasal bleeding or discharge. Mucous membranes pink and moist. NECK: Supple. Trachea midline. CARDIOVASCULAR: Regular rate and rhythm. S1, S2 noted. No murmur appreciated. RESPIRATORY: No accessory muscle use. Clear to auscultation. Breath sounds equal bilaterally. GASTROINTESTINAL: Abdomen soft, non-tender, nondistended. Normoactive bowel sounds x4. PEG tube in place with abdominal binder. MUSCULOSKELETAL: No obvious deformities. Extremities without clubbing, cyanosis , or edema. NEUROLOGICAL: Awake and alert. No obvious cranial nerve deficits. Motor grossly within normal limits. Mostly nonverbal, does mumble incomprehensible sounds. PSYCHIATRIC: insight and judgment limited Hospital Course 86-year-old male with past medical history of CVA with aphasia was sent from SNF due to failed swallow evaluation and silent aspiration Dysphagia secondary to prior CVA: Failed swallow eval as outpatient. PEG tube placed by GI 10/16. Palliative care consulted to assist with further goals of care. S/p IVF. Appreciate dietitian recommendations for tube feedings (Glucerna 1.5 at goal rate 50ml/hr). Now tolerating tube feeds. Resume home meds per PEG tube as able. Aspiration pneumonia: Asymptomatic. CXR with bilateral peripheral airspace disease with infectious infiltrates suspected. Secondary to the above. Afebrile with no leukocytosis. Empiric coverage with IV Zosyn, transition to oral Augmentin at NH. O2 and nebs as needed. UTI: Abnormal UA with evidence of UTI. Continue antibiotics as above. Urine culture with pansensitive E.coli. Will d/c on Augmentin. Chronic anticoagulation with history of GI bleed, PE, and CVA: Held Eliquis with GI procedure as above. Discussed with GI, okay to start back on Eliquis 24 hours after PEG tube placed. Eliquis restarted. History of seizure disorder: On Dilantin with subtherapeutic level. Given IV Dilantin. Resume oral Dilantin. Seizure precautions. DVT prophylaxis: Marianquis, SCDs Written by Hiral Kinney, acting as scribe for Dr. Fournier on 10/18/16 at 10:03. The documentation accurately reflects the work performed [id number] by me Dr. Fournier on 10/18/16 at 10:03. Pt Condition on Discharge: Stable Discharge Disposition: Discharge to SNF Discharge Time: > 30 minutes Discharge Instructions DIET: Follow Instructions for: On Tube Feeding Additional Diet Instructions: -Glucerna 1.5 at goal rate of 50 ml/hr -Hold TF one hr before and after Synthroid administered. -If bolus feedings are preferred at SNF, reccomend 360 mls q 8 hrs -Free water flushes per MD or SNF protocol Activities you can perform: Regular-No Restrictions Follow up Referrals: PCP Follow-up - 2-3 Days with Deandre Parada MD New Medications: Amoxicillin-Clavulanate (Augmentin) 875-125 mg Tab 875 MG TUBE BID not for use in CrCl <30 ml/min. Infection #20 Ref 0 TAB Apixaban (Eliquis) 2.5 Mg Tab 2.5 MG PEG BID Blood Clot Prevention Days 7 TAB Atorvastatin (Lipitor) 20 Mg Tab 20 MG PEG HS Cholesterol Management Days 7 TAB Hydralazine (Hydralazine) 10 Mg Tab 10 MG TUBE BID Blood Pressure Management Days 7 TAB Levothyroxine (Synthroid) 50 Mcg Tab 50 MCG TUBE DAILY@06 Thyroid Days 7 TAB Phenytoin Liq (Phenytoin Liq) 125 Mg/5 Ml Meena 100 MG TUBE TID Seizure Control Days 7 BOTTLE Propranolol (Propranolol) 20 Mg Tab 20 MG TUBE Q12HR Blood Pressure Management Days 7 TAB Changed Medications: Omeprazole (Omeprazole) 20 Mg Tab 20 MG TUBE DAILY Reflux #30 Ref 0 TAB (Changed from: PO) Sitagliptin (Januvia) 100 Mg Tab 100 MG TUBE DAILY Blood Sugar Management #30 Ref 0 TAB (Changed from: PO) Continued Medications: Bisacodyl Supp (Biscolax Supp) 10 Mg Supp 10 MG RECTAL DAILY PRN CONSTIPATION Ref 0 SUPP Sodium Phosphates Rectal (Fleet Enema Rectal) 7-19 Gm/118 Ml Enem 118 ML RECTAL DAILY PRN CONSTIPATION Ref 0 BOTTLE ([Readycare]) 240 ML PO QID Discontinued Medications: Apixaban (Eliquis) 2.5 Mg Tab 2.5 MG PO BID Blood Clot Prevention Ref 0 TAB Atorvastatin (Lipitor) 20 Mg Tab 20 MG PO HS Cholesterol Management #30 Ref 0 TAB Hydralazine (Hydralazine) 10 Mg Tab 10 MG PO BID Take with a meal Blood Pressure Management Ref 0 TAB Levothyroxine (Levothyroxine) 50 Mcg Tab 50 MCG PO DAILY Thyroid #30 Ref 0 TAB Magnesium (Magnesium) 400 Mg Tab 400 MG PO DAILY Nutritional Supplement Ref 0 TAB Magnesium Citrate Liq (Magnesium Citrate Liq) 300 Ml Liq 300 ML PO DIRECTED Ref 0 BOTTLE Magnesium Hydroxide Concentrate Liq (Milk of Magnesia Concentrate Liq) 1,200 Mg/ 5 Ml Susp 30 ML PO DAILY PRN CONSTIPATION #1 BOTTLE Phenytoin Extended (Dilantin) 100 Mg Cap 100 MG PO TID Control Seizures #90 Ref 0 CAP Potassium Chloride ER (Potassium Chloride ER) 20 Meq Tab 20 MEQ PO TID Electrolyte Replacement #60 Ref 0 TAB Propranolol (Propranolol) 20 Mg Tab 20 MG PO Q12HR #60 Ref 0 TAB Tamsulosin (Flomax) 0.4 Mg Cap 0.4 MG PO HS Manage Prostate Problems #30 Ref 0 CAP Hiral Kinney PA-C Oct 18, 2016 12:08 Korina Fournier MD Oct 18, 2016 18:01
[2016-10-18 15:26] VITALS: PULSE 67
== END 2016-10-18 17:41 ==
LOC: NEDAMB 17:52 → NEDA 23:42 → NEDH 10-15 04:13 → NEPFCDU 10-15 16:46
PROVIDERS: ADMIT Hospitalist; ATTEND Hospitalist
DX: R13.12 Dysphagia, oropharyngeal phase (principal); R47.02 Dysphasia; I69.320 Aphasia following cerebral infarction; N30.00 Acute cystitis without hematuria; B96.20 Unspecified Escherichia coli [E. coli] as the cause of diseases classified elsewhere; E86.0 Dehydration; D64.9 Anemia, unspecified; I12.9 Hypertensive chronic kidney disease with stage 1 through stage 4 chronic kidney disease, or unspecified chronic kidney disease; N18.9 Chronic kidney disease, unspecified; E11.22 Type 2 diabetes mellitus with diabetic chronic kidney disease; I25.10 Atherosclerotic heart disease of native coronary artery without angina pectoris; I25.2 Old myocardial infarction; E78.5 Hyperlipidemia, unspecified; G40.909 Epilepsy, unspecified, not intractable, without status epilepticus; K21.9 Gastro-esophageal reflux disease without esophagitis; J69.0 Pneumonitis due to inhalation of food and vomit; L98.9 Disorder of the skin and subcutaneous tissue, unspecified; E03.9 Hypothyroidism, unspecified; E78.00 Pure hypercholesterolemia, unspecified; N40.0 Benign prostatic hyperplasia without lower urinary tract symptoms; Z79.01 Long term (current) use of anticoagulants; Z79.84 Long term (current) use of oral hypoglycemic drugs; Z86.711 Personal history of pulmonary embolism; Z93.1 Gastrostomy status
CPT/HCPCS: 00740; 43246; 71010; 80048; 80185; 81001; 82948; 85025; 85610; 85730; 87077; 87086; 87186; 93005; 99285; C9113; G0378; J0690; J1165; J2543; J3370; J7042; J7050; Q2009; 76937